=== PATIENT | male | born 1945 | race Caucasian/White ===

== ENCOUNTER → 2022-09-01 | Outpatient (CLI) | payer MEDICARE ==
--- NOTE | 2022-09-01 08:19 | MR ---
EXAMINATION TYPE: MR Prostate wo/w con DATE OF EXAM: 09/01/2022 COMPARISON: None. INDICATION: Elevated PSA. PSA: 13.8 ng/ml on 07/03/2022. Recent Biopsy and Date: 06/30/2021 Pathology Report (If Applicable): Benign. TECHNIQUE: Examination was performed using a 3T MRI without an endorectal coil. Multiparametric imaging was perf ormed with T2 mutliplanar sequences, axial diffusion weighted imaging and dynamic contrast enhanced i maging, utilizing 6.5 mL intravenous Gadavist gadolinium contrast. FINDINGS: PROSTATE VOLUME: 6.2 cm SI x 4.7 cm AP x 5.5 cm LR Vol= 83.9 cc PSA DENSITY: 0.16 ng/ml/cc Enlarged prostate is seen. There is transitional zone hypertrophy. The peripheral zone shows some are as of slight indistinct hypointensity on ADC mapping and diminished signal on T2-weighted images thro ughout the right aspect without increased signal on diffusion-weighted imaging. The transitional zone is overall heterogeneous in appearance with Heterogeneous area of T2 hypointensity with obscured margins involving the right lateral mid to basal aspects near axial image 24. No restricted diffusion. Area of concern measuring roughly 1.6cm is not ed. No significant enhancement. PI-RADS 3 lesion. Prostate capsule is maintained. Seminal vesicles somewhat small in size. No adjacent adenopathy. Mild to moderate wall thickening and mild trabeculation in the urinary bladder. Visualized osseous struct ures are intact. No suspicious bowel dilatation. IMPRESSION: Enlarged prostate consistent with BPH. Highest Assessment Category: 3 MRI Stage: T0 N0 M0 based on review of pelvic images. False negative rates for MRI range from 5-20% depending on risk profile. Assessment Categories: 1 ? Very low (clinically significant cancer is highly unlikely to be present) 2 ? Low (clinically significant cancer is unlikely to be present) 3 ? Intermediate (the presence of clinically significant cancer is equivocal) 4 ? High (clinically significant cancer is likely to be present) 5 ? Very high (clinically significant cancer is highly likely to be present)
== END | disposition home or self-care (01) ==
LOC: RADMRIMAIN 06:31
PROVIDERS: ATTEND Urology
DX: N40.0 Benign prostatic hyperplasia without lower urinary tract symptoms (principal); R97.20 Elevated prostate specific antigen [PSA]
CPT/HCPCS: 72197; A9585